=== PATIENT | female | born 1980 | race Native Hawaiian/Other Pacific Islander ===

== ENCOUNTER 2019-12-24 15:21 | Outpatient (CLI) | payer OTHER ==
[2019-12-24 16:15] LABS: PLATELET COUNT 293 K/uL (152-353)
[2019-12-24 16:20] LABS: POTASSIUM 3.6 mmol/L (3.6-5.2); SODIUM 137 mmol/L (136-145)
== END 2019-12-24 19:40 | disposition home or self-care (01) ==
LOC: LABW 15:21
PROVIDERS: Nurse Practitioner Family
DX: R07.89 Other chest pain (principal)
CPT/HCPCS: 36415; 80053; 82550; 82553; 84484; 85027; 85379; 93005

== ENCOUNTER 2020-01-03 13:51 | Outpatient (CLI) | payer OTHER | END 2020-01-03 20:11 | disposition home or self-care (01) | LOC: RESP 13:51 | DX: R06.09 Other forms of dyspnea (principal); D17.24 Benign lipomatous neoplasm of skin and subcutaneous tissue of left leg ==

== ENCOUNTER 2021-10-26 08:59 | Emergency (ER) | payer OTHER ==
[~2021-10-26] VITALS: Ht 157.5 cm; Wt 63.5 kg
[2021-10-26 09:02] VITALS: TEMP 98.2
[2021-10-26 09:57] LABS: PLATELET COUNT 305 K/uL (152-353)
[2021-10-26 10:06] LABS: POTASSIUM 3.6 mmol/L (3.6-5.2)
[2021-10-26 10:20] VITALS: BP 134/70
[2021-10-26 10:52] LABS: PARTIAL THROMBOPLASTIN TIME 25.2 SECONDS (24.5-33.6)
== END 2021-10-26 10:38 | disposition home or self-care (01) ==
LOC: ED 08:59
PROVIDERS: Hospitalist
DX: R07.89 Other chest pain (principal)
CPT/HCPCS: 36415; 80053; 82550; 83880; 84484; 85027; 85379; 85610; 85730; 93005; 99283